=== PATIENT | female | born 1985 | race Caucasian/White ===

== ENCOUNTER → 2019-08-09 | Outpatient (CLI) | payer OTHER | END | disposition home or self-care (01) | LOC: LABWHC1 09:01 | PROVIDERS: ATTEND Family Medicine | DX: E03.8 Other specified hypothyroidism (principal) | CPT/HCPCS: 36415; 84439; 84443; 84481 ==

== ENCOUNTER → 2020-09-24 | Outpatient (CLI) | payer OTHER ==
--- NOTE | 2020-09-25 05:35 | MR ---
EXAMINATION TYPE: MR thoracic spine wo con DATE OF EXAM: 09/24/2020 COMPARISON: None HISTORY: Severe pain in left side of Thoracic spine, rib pain radiates toward and into sternum. Start ed 5 Months ago, 2 months the pain has been worse. Multiplanar multiecho imaging of the thoracic spine with no contrast. Thoracic vertebra have normal spacing and alignment. There is no compression fracture. Thoracic spina l cord has normal signal pattern. There is no evidence of edema. There is no thoracic spinal stenosis . There is developmentally adequate spinal canal. The posterior elements are intact. There is no thoracic paraspinal mass. IMPRESSION: Negative MR scan of the thoracic spine.
== END | disposition home or self-care (01) ==
LOC: RADMRIMAIN 09:17
PROVIDERS: ATTEND Family Medicine
DX: M54.6 Pain in thoracic spine (principal)
CPT/HCPCS: 72146